=== PATIENT | male | born 1965 | race Two or more races ===

== ENCOUNTER → 2020-11-16 | Outpatient (CLI) | payer OTHER ==
[~2020-11-16] MED LIST: IOHEXOL 240 MG/ML 50ML VIAL. ONE
--- NOTE | 2020-11-16 13:43 | RAD ---
[employer]RS Compliance Statement: One or more of the following individualized dose reduction techniques were utilized for this examinat ion: 1. Automated exposure control 2. Adjustment of the mA and/or kV according to patient size 3. Use of iterative reconstruction technique CT abdomen without contrast 11/16/2020 7:59 AM INDICATION: Diastases recti, umbilical pain COMPARISON: None available TECHNIQUE: Multiple axial CT images of the abdomen were obtained without intravenous contrast. Liang l and sagittal reformats are provided. FINDINGS: Lung bases are clear. Heart size within normal limits. Evaluation of the solid abdominal vi scera is limited by lack of intravenous contrast. There is nodular contour of the hepatic parenchyma which may be associated with underlying cirrhosis. Limited evaluation of the hepatic parenchyma witho ut intravenous contrast. No suspicious hepatic lesions are identified. Spleen is not enlarged. Adrena l glands are normal in appearance. Pancreas is normal in appearance without adjacent inflammatory lia nges. Gallbladder surgically absent. Abdominal aorta is normal in course and caliber. Left periaortic lymph nodes measure up to 7 mm by short axis. Aortocaval lymph node measures 8 mm (series 2, image 6 3). Small large bowel are normal in caliber. No bowel obstruction or inflammation. Oral contrast was administered. Gastric varices are noted. No calculi identified within the kidneys proximal ureters. N o hydronephrosis or suspicious renal mass. No significant diastases of the rectus muscles. No ventral abdominal hernia is identified. IMPRESSION: Nodular contour of the hepatic parenchyma suggests underlying cirrhosis. Limited evaluation for under lying hepatic masses. If there is persistent clinical concern, further evaluation with abdominal MRI with and without contrast is recommended. Gastric varices are suspected. No bowel obstruction or inflammation. Electronically signed by: Christa Jeffery MD (11/16/2020 1:40 PM) [id number]
== END ==
LOC: CT 07:19
PROVIDERS: ATTEND Family Medicine
DX: M62.08 Separation of muscle (nontraumatic), other site (principal); R10.33 Periumbilical pain; Z87.19 Personal history of other diseases of the digestive system; K76.89 Other specified diseases of liver
CPT/HCPCS: 74150